=== PATIENT | male | born 1960 | race Caucasian/White ===

== ENCOUNTER 2020-01-16 17:36 | Emergency (ER) | payer BC, OTHER ==
[2020-01-16 17:47] VITALS: BP 158/93
[2020-01-16] MEDS ORDERED: CIPROFLOXACIN HCL 750 MG TABLET PO ONE (17:51)
[2020-01-16] MEDS ORDERED: DIPH/PERTUSS(ACELL)/TETANUS VAC/PF 0.5 ML SYR (>=10YO) IM ONE (17:51)
--- NOTE | 2020-01-16 17:54 | ER Document Report ---
HPI - HPI Time Seen by Provider: 01/16/20 17:45 Pain Level: Denies Notes: 59-year-old male patient presented to the emergency department with puncture wound to his right forearm. He states this occurred 2 days ago he did this with a fish knife. He was cutting fish at the time. He is unsure when his last tetanus was. He is concerned as there is now surrounding erythema. He denies any fever or chills. Denies any drainage from the area. - ROS Systems Reviewed and Negative: Yes All other systems reviewed and negative - DERM Skin Problems: Puncture Wound Past Medical History - General Information source: Patient - Social History Smoking Status: Never Smoker Chew tobacco use (# tins/day): No Frequency of alcohol use: None Drug Abuse: None Family History: None - Medical History Medical History: Negative Surgical Hx: Negative Vertical Provider Document - CONSTITUTIONAL Notes: PHYSICAL EXAMINATION: GENERAL: Well-appearing, well-nourished and in no acute distress. HEAD: Atraumatic, normocephalic. EYES: Pupils equal round extraocular movements intact, conjunctiva are normal. ENT: Nares patent NECK: Normal range of motion LUNGS: No respiratory distress Musculoskeletal: Normal range of motion NEUROLOGICAL: Normal speech, normal gait. PSYCH: Normal mood, normal affect. SKIN: 0.5 cm puncture wound noted to patient's right forearm on the volar surface. There is surrounding erythema but no induration or fluctuance. Strong radial pulse distally. Normal range of motion at elbow and wrist. Course - Re-evaluation Re-evalutation: Patient with cellulitis to right forearm. Will be started on appropriate antibiotics. Will provide coverage for vibrio as patient did do this with a fish knife that had been near salt water. Strict ED return precautions discus sed, patient verbalized understanding and agreement with same. - Vital Signs Vital signs: Temp Pulse Resp BP Pulse Ox 98.1 F 92 18 158/93 H 100 01/16/20 17:46 01/16/20 17:46 01/16/20 17:46 01/16/20 17:46 01/16/20 17:46 Discharge - Discharge Clinical Impression: Cellulitis Qualifiers: Site of cellulitis: extremity Site of cellulitis of extremity: upper extremity Laterality: right Qualified Code(s): L03.113 - Cellulitis of right upper limb Condition: Stable Disposition: HOME, SELF-CARE Additional Instructions: The rash is likely due to infection of your skin. You need to take the antibiotics as prescribed. Do not stop even if the rash goes away until you have completed all the antibiotics. The area of redness was traced out here in the emergency department with a marking pen. You need to return to emergency department if the redness spreads outside of this area by more than 2 cm in any direction. You should also return if you develop fevers with temperature greater than 101, persistent vomiting, worsening pain, or have any other symptoms that are concerning to you. Follow-up with your primary care provider for a recheck in 3 to 5 days. Tetanus Immunization Given You have been given an immunization against tetanus. Please record this in your records. In general, a booster is needed only once every 10 years. The tetanus shot protects against tetanus or "lockjaw," which is a complication of certain wound infections (the tetanus shot cannot protect against the actual infection). The immunization site may become warm and red due to local reaction. If this occurs, apply warm compresses and take aspirin or ibuprofen to reduce inflammation and discomfort. Return for evaluation if the reaction becomes severe. Prescriptions: Ciprofloxacin HCl [Cipro 750 mg Tablet] 750 mg PO BID #20 tablet Referrals: LOCAL,NO [NO LOCAL MD] - Follow up as needed
== END 2020-01-16 18:05 | disposition home or self-care (01) ==
LOC: ER 17:36
DX: L03.113 Cellulitis of right upper limb (principal); S51.831A Puncture wound without foreign body of right forearm, initial encounter; W26.0XXA Contact with knife, initial encounter
CPT/HCPCS: 99283; 90471; 90715; J3490